=== PATIENT | male | born 1990 | race Two or more races ===

== ENCOUNTER 2025-02-03 19:42 | Emergency (ER) | payer OTHER ==
[~2025-02-03] VITALS: Ht 165.1 cm; Wt 68.2 kg
[2025-02-03 19:58] VITALS: TEMP 98.3
[2025-02-03 21:29] LABS: COVID AG,FIA SOURCE NPH
[2025-02-03 21:35] LABS: PLATELET COUNT (AUTO) 331 K/uL (150-450); RED BLOOD CELL COUNT(AUTO) 5.09 MIL/uL (4.50-5.90); RED CELL DISTRIBUTION WIDTH 13.5 % (11.5-14.5); WHITE BLOOD COUNT (AUTO) 7.7 K/uL (4.5-11.0)
[2025-02-03 21:44] LABS: CALCIUM, TOTAL 8.9 mg/dL (8.8-10.5); CREATININE 0.92 mg/dL (0.60-1.30); GLOMERULAR FILTR. RATE CALC > 60 mL/min (>60); GLUCOSE,RANDOM 104 mg/dL (70-110); SODIUM SERUM 141 mmol/L (136-145); UREA NITROGEN, BLOOD 11 mg/dL (7-18)
[2025-02-03 21:48] LABS: ASPARTATE AMINOTRANSFERASE 25 U/L (15-37); TOTAL PROTEIN, SERUM 7.9 g/dL (6.4-8.2)
[2025-02-03 21:49] LABS: ALCOHOL, BLOOD (SERUM) < 3 mg/dL (0-10)
[2025-02-03 21:52] LABS: SARS-COV2 (COVID) ANTIGEN,FIA Negative (Negative)
[2025-02-03 23:45] VITALS: BP 114/70; PULSE 68; RESP 14; O2SAT 98
== END 2025-02-03 23:55 ==
LOC: EMS 19:47
DX: F11.10 Opioid abuse, uncomplicated (principal); F17.210 Nicotine dependence, cigarettes, uncomplicated; Z79.899 Other long term (current) drug therapy; Z20.822 Contact with and (suspected) exposure to COVID-19
CPT/HCPCS: 99283; 87426; 80053; 85025; 36415; G0480